=== PATIENT | female | born 1955 ===

== ENCOUNTER 2016-10-11 17:21 | Emergency (ER) | payer OTHER ==
[2016-10-11 18:09] VITALS: BP 114/51
--- NOTE | 2016-10-11 19:04 | UC ---
UC General HPI - HPI Summary HPI Summary: Patient harvey sore throat congestion and ear pain. - History of Current Complaint Chief Complaint: UCRespiratory Stated Complaint: SORE THROAT Time Seen by Provider: 10/11/16 18:42 Hx Obtained From: Patient Onset/Duration: Sudden Onset, Lasting Days Timing: Constant Onset Severity: Moderate Current Severity: Moderate - Allergy/Home Medications Allergies/Adverse Reactions: Allergies Allergy/AdvReac Type Severity Reaction Status Date / Time Penicillins Allergy Rash Verified 10/11/16 18:01 Home Medications: Home Medications Fexofenadine-Pseudoephedrine [Cammie-D 24 Hour Allergy] 1 tab PO DAILY [History Confirmed 10/11/16] Naproxen TAB* [Naprosyn 250 mg TAB*] 250 mg PO Q8H PRN 10/11/16 [History Confirmed 10/11/16] PMH/Surg Hx/FS Hx/Imm Hx Previously Healthy: Yes - Surgical History Surgical History: Yes Surgery Procedure, Year, and Place: Ovarian cyst. 1960 Appendectomy - Family History Known Family History: Negative: Cardiac Disease, Hypertension - Social History Alcohol Use: None Substance Use Type: None Smoking Status (MU): Never Smoked Tobacco - Immunization History Most Recent Influenza Vaccination: 2016 Most Recent Pneumonia Vaccination: None Review of Systems Constitutional: Fever Skin: Negative Eyes: Negative ENT: Sore Throat, Ear Ache, Nasal Discharge Respiratory: Cough Cardiovascular: Negative Gastrointestinal: Negative Genitourinary: Negative Motor: Negative Neurovascular: Negative Musculoskeletal: Negative Neurological: Headache Psychological: Negative All Other Systems Reviewed And Are Negative: Yes Physical Exam Triage Information Reviewed: Yes Appearance: Well-Nourished, Ill-Appearing, Pain Distress Vital Signs: Initial Vital Signs Temp 99.5 F 10/11/16 18:03 Pulse 80 10/11/16 18:03 Resp 18 10/11/16 18:03 BP 114/51 10/11/16 18:03 Pulse Ox 100 10/11/16 18:03 Vital Signs Reviewed: Yes Eye Exam: Normal Eyes: Positive: Conjunctiva Clear ENT Exam: Normal ENT: Positive: Pharyngeal erythema, Nasal drainage, TM bulging - with puruluent fluid behind TM on right side, TM red Course/Dx - Differential Dx - Multi-Symptom Provider Diagnoses: right otitis media. pharynigitis Discharge - Discharge Plan Condition: Stable Disposition: HOME Patient Education Materials: Otitis Media (ED) Additional Instructions: take the medication as prescribed. Increase fluid intake and get plenty of rest. Follow up with any worsening symptoms.
== END 2016-10-11 19:25 | disposition home or self-care (01) ==
LOC: UCCORT 17:21
DX: H66.91 Otitis media, unspecified, right ear (principal); J02.9 Acute pharyngitis, unspecified; Z88.0 Allergy status to penicillin
CPT/HCPCS: 99212; G0463

== ENCOUNTER 2016-10-21 16:07 | Emergency (ER) | payer OTHER ==
[2016-10-21 16:35] VITALS: BP 120/57
--- NOTE | 2016-10-21 17:35 | UC ---
Throat Pain/Nasal Heath HPI - HPI Summary HPI Summary: seen 10/11 and dx with Right OM. just finishing a course of Keflex. Still has sinus drainage and pain has taken sudafed with some relief---Pt notes that while her chart states she is allergic to Penicillins she had a stomach ache as a child with amoxicillin and never had an allergic reaction. - History of Current Complaint Chief Complaint: UCGeneralIllness Stated Complaint: FOLLOW UP EAR INFECTION Time Seen by Provider: 10/21/16 17:26 Hx Obtained From: Patient ?: No Onset/Duration: Gradual Onset, Lasting Weeks - 2-3, Still Present Severity: Moderate Pain Intensity: 5 Pain Scale Used: 0-10 Numeric Cough: None Associated Signs & Symptoms: Positive: Sinus Discomfort, Nasal Discharge - Allergies/Home Medications Allergies/Adverse Reactions: Allergies Allergy/AdvReac Type Severity Reaction Status Date / Time Penicillins Allergy Rash Unverified 10/21/16 16:36 PMH/Surg Hx/FS Hx/Imm Hx Previously Healthy: Yes - Surgical History Surgical History: Yes Surgery Procedure, Year, and Place: Ovarian cyst. 1960 Appendectomy - Family History Known Family History: Negative: Cardiac Disease, Hypertension Family History: denies cardio vascular issues in family lineage - Social History Occupation: Employed Full-time - school nurse (retired Nurse practitioner) Lives: With Family Alcohol Use: None Substance Use Type: None Smoking Status (MU): Never Smoked Tobacco - Immunization History Most Recent Influenza Vaccination: 2016 Most Recent Pneumonia Vaccination: None Review of Systems Constitutional: Chills, Fatigue Skin: Negative Eyes: Negative ENT: Ear Ache, Nasal Discharge Respiratory: Negative Cardiovascular: Negative Gastrointestinal: Negative Genitourinary: Negative Motor: Negative Neurovascular: Negative Musculoskeletal: Negative Neurological: Headache - frontal/maxillary pain Psychological: Negative All Other Systems Reviewed And Are Negative: Yes Physical Exam Triage Information Reviewed: Yes Appearance: Well-Appearing, No Pain Distress, Well-Nourished Vital Signs: Initial Vital Signs Temp 99 F 10/21/16 16:29 Pulse 68 10/21/16 16:29 Resp 17 10/21/16 16:29 BP 120/57 10/21/16 16:29 Pulse Ox 98 10/21/16 16:29 Vital Signs Reviewed: Yes Eye Exam: Normal Eyes: Positive: Conjunctiva Clear ENT Exam: Normal ENT: Positive: Normal ENT inspection, Hearing grossly normal, Pharynx normal, Nasal congestion, Nasal drainage, TMs normal. Negative: Tonsillar swelling, Tonsillar exudate, Trismus, Muffled/hoarse voice Dental Exam: Normal Neck exam: Normal Neck: Positive: Supple, Nontender, No Lymphadenopathy Respiratory Exam: Normal Respiratory: Positive: Chest non-tender, Lungs clear, Normal breath sounds, No respiratory distress, No accessory muscle use Cardiovascular Exam: Normal Cardiovascular: Positive: RRR, No Murmur, Pulses Normal, Brisk Capillary Refill Musculoskeletal Exam: Normal Musculoskeletal: Positive: Strength Intact, ROM Intact, No Edema Neurological Exam: Normal Neurological: Positive: Alert, Muscle Tone Normal Psychological Exam: Normal Skin Exam: Normal Throat Pain/Nasal Course/Dx - Course Assessment/Plan: Add flonase and mucinex d, may add augmentin should sx fail to resolve, follow with pcp - Differential Dx/Diagnosis Differential Diagnosis/HQI/PQRI: Laryngitis, Peritonsillar Abscess, Pharyngitis , Sinusitis, URI Provider Diagnoses: Sinusitis Discharge - Discharge Plan Condition: Stable Disposition: HOME Prescriptions: Amoxicillin/Clavulanate TAB* [Augmentin TAB 875*] 875 mg PO BID #20 tab Fluticasone NASAL SPRAY 50MCG* [Flonase NASAL SPRAY 50MCG*] 2 spray BOTH NARES DAILY #1 btl Patient Education Materials: Decongestant/Expectorant (By mouth), Sinusitis (ED ), How to Use Nasal Clyo (ED) Referrals: Jeovanny Ledezma MD [Primary Care Provider] - 1 Week
== END 2016-10-21 17:42 | disposition home or self-care (01) ==
LOC: UCCORT 16:07
DX: J32.9 Chronic sinusitis, unspecified (principal); Z88.0 Allergy status to penicillin
CPT/HCPCS: 99212; G0463